=== PATIENT | female | born 1960 | race Caucasian/White ===

== ENCOUNTER 2018-12-31 06:10 | Day surgery (SDC) | payer OTHER, MEDICARE, MEDICAID ==
[~2018-12-31] VITALS: Ht 144.8 cm; Wt 49.5 kg
[~2018-12-31 06:10] MED LIST: ACET-2247 PO; ASCO500 PO; ASPI-1182 PO; ATOR10TA84 PO; CALC-959 PO; CARB15DR61 AU; DENO60DI SQ; DSS100 PO; ERGO400C PO; MULT1CAP32 PO; POLY238P2 PO; RINGERS SOLUTION,LACTATED 1,000 ML IV ONE
[2018-12-31] MEDS ORDERED: SUCCINYLCHOLINE CHLORIDE 20 MG/ML 10 ML VIAL IVP ONE (06:11)
[2018-12-31] MEDS ORDERED: DEXAMETHASONE SOD PHOS 4 MG/ML VIAL IVP ONE (06:11)
[2018-12-31] MEDS ORDERED: LIDOCAINE/PF 2% 5 ML VIAL IM ONE (06:11)
[2018-12-31] MEDS ORDERED: ONDANSETRON HCL 4 MG/2 ML VIAL IVP ONE (06:11)
[2018-12-31] MEDS ORDERED: FentaNYL CITRATE-PF 100 MCG/2 ML VIAL IVP ONE (06:11)
[2018-12-31] MEDS ORDERED: PROPOFOL 1% 20 ML VIAL IVP ONE (06:11)
[2018-12-31] MEDS: RINGERS SOLUTION,LACTATED 1,000 ML IV ONE (07:05)
[2018-12-31 07:15] LABS: BASOPHILS % (AUTO) 0.7 % (0.0-2.0); EOSINOPHILS % (AUTO) 10.1 % (1.0-6.0); HEMATOCRIT 42.8 % (36-46); HEMOGLOBIN 13.6 g/dL (12.0-16.0); LYMPHOCYTES % (AUTO) 30.4 % (22.0-44.0); MEAN CORPUSCULAR HEMOGLOBIN 29.3 pg (26.0-34.0); MEAN CORPUSCULAR HGB CONC 31.9 G/dL (31.0-37.0); MEAN CORPUSCULAR VOLUME 92 fL (80-100); MONOCYTES # (AUTO) 0.4 K/uL (0.1-1.0); NEUTROPHILS # (AUTO) 3.5 K/uL (1.8-7.7); NEUTROPHILS % (AUTO) 52.8 % (40.0-70.0); PLATELET COUNT (AUTO) 175 K/uL (150-450); RED BLOOD CELL COUNT(AUTO) 4.66 MIL/uL (4.00-5.20); RED CELL DISTRIBUTION WIDTH 13.9 % (11.5-14.5)
[2018-12-31] MEDS ORDERED: AMPICILLIN SODIUM 1 GM/VIAL ONE (07:23)
[2018-12-31] MEDS ORDERED: SODIUM CHLORIDE 0.9% 100 ML ONE (07:24)
[2018-12-31] MEDS ORDERED: SODIUM CHLORIDE 0.9% 50 ML ONE (07:24)
[2018-12-31 07:27] LABS: ANION GAP 7 mmol/L (8-16); CALCIUM, TOTAL 9.6 mg/dL (8.8-10.5); CARBON DIOXIDE 32 mmol/L (22-29); CHLORIDE 106 mmol/L (98-107); CREATININE 0.67 mg/dL (0.60-1.30); GLOMERULAR FILTR. RATE CALC > 60 mL/min (>60); GLUCOSE,RANDOM 86 mg/dL (70-110); POTASSIUM 3.7 mmol/L (3.5-5.1); SODIUM SERUM 145 mmol/L (136-145); UREA NITROGEN, BLOOD 18 mg/dL (7-18)
[2018-12-31 07:29] LABS: INR 0.9 (0.9-1.1); PROTHROMBIN TIME 9.7 SEC (9.4-11.6)
[2018-12-31 07:37] LABS: ALANINE AMINOTRANSFERASE 46 U/L (12-78); ALBUMIN 3.1 g/dL (3.4-5.0); ALKALINE PHOSPHATASE 122 U/L (46-116); ASPARTATE AMINOTRANSFERASE 28 U/L (15-37); BILIRUBIN,TOTAL 0.3 mg/dL (0.1-1.0); TOTAL PROTEIN, SERUM 6.7 g/dL (6.4-8.2)
== END 2018-12-31 13:30 | disposition home or self-care (01) ==
LOC: SURGERY 06:10
PROVIDERS: ATTEND Dentist General Practice
DX: K05.30 Chronic periodontitis, unspecified (principal); K03.6 Deposits [accretions] on teeth; E78.5 Hyperlipidemia, unspecified; M81.0 Age-related osteoporosis without current pathological fracture; K21.9 Gastro-esophageal reflux disease without esophagitis; Z91.030 Bee allergy status; Z90.710 Acquired absence of both cervix and uterus; Z98.890 Other specified postprocedural states; Z79.899 Other long term (current) drug therapy
CPT/HCPCS: 36415; 41899; 71045; 80053; 85025; 85610; 85730; 93005; J0290; J0330; J1100; J2405; J2704; J3010; J3490; J7050 ×2; J7120

== ENCOUNTER 2021-04-26 06:58 | Day surgery (SDC) | payer OTHER, MEDICARE, MEDICAID ==
[~2021-04-26] VITALS: Ht 144.8 cm; Wt 53.2 kg
[~2021-04-26 06:58] MED LIST changes: -ASPI-1182 PO; +ASPI-1444 PO; +POLY238P PO; -POLY238P2 PO
[2021-04-26 07:32] LABS: COVID AG,FIA SOURCE NASOPHARYNGEAL
[2021-04-26] MEDS ORDERED: AMPICILLIN SODIUM 2 GM/NS 100 ML IV ONE (08:00)
[2021-04-26 08:02] LABS: BASOPHILS % (AUTO) 0.4 % (0.0-2.0); EOSINOPHILS % (AUTO) 5.2 % (1.0-6.0); HEMOGLOBIN 14.3 g/dL (12.0-16.0); LYMPHOCYTES # (AUTO) 1.8 K/uL (1.0-4.8); LYMPHOCYTES % (AUTO) 17.8 % (22.0-44.0); MEAN CORPUSCULAR HEMOGLOBIN 29.8 pg (26.0-34.0); MEAN CORPUSCULAR HGB CONC 33.2 G/dL (31.0-37.0); MEAN CORPUSCULAR VOLUME 90 fL (80-100); MONOCYTES # (AUTO) 0.7 K/uL (0.1-1.0); NEUTROPHILS % (AUTO) 69.6 % (40.0-70.0); PLATELET COUNT (AUTO) 176 K/uL (150-450); RED BLOOD CELL COUNT(AUTO) 4.78 MIL/uL (4.00-5.20); RED CELL DISTRIBUTION WIDTH 13.6 % (11.5-14.5)
[2021-04-26 08:10] LABS: ANION GAP 6 mmol/L (8-16); CALCIUM, TOTAL 9.5 mg/dL (8.8-10.5); CARBON DIOXIDE 30 mmol/L (22-29); CHLORIDE 109 mmol/L (98-107); GLOMERULAR FILTR. RATE CALC > 60 mL/min (>60); GLUCOSE,RANDOM 94 mg/dL (70-110); POTASSIUM 3.9 mmol/L (3.5-5.1); SODIUM SERUM 145 mmol/L (136-145); UREA NITROGEN, BLOOD 18 mg/dL (7-18)
[2021-04-26 08:13] LABS: ALANINE AMINOTRANSFERASE 43 U/L (12-78); ALKALINE PHOSPHATASE 114 U/L (46-116); ASPARTATE AMINOTRANSFERASE 26 U/L (15-37); BILIRUBIN,TOTAL 0.3 mg/dL (0.1-1.0); PROTHROMBIN TIME 10.3 SEC (9.4-11.6)
[2021-04-26] MEDS ORDERED: FentaNYL CITRATE PF 100 MCG/2 ML VIAL IVP ONE (12:00)
[2021-04-26] MEDS ORDERED: PROPOFOL 1% 20 ML VIAL IVP ONE (12:00)
[2021-04-26] MEDS ORDERED: MIDAZOLAM HCL 2 MG/2 ML VIAL IVP ONE (12:00)
[2021-04-26] MEDS ORDERED: ONDANSETRON HCL 4 MG/2 ML VIAL IVP ONE (12:00)
[2021-04-26] MEDS ORDERED: LIDOCAINE/PF 2% 5 ML VIAL IM ONE (12:00)
== END 2021-04-26 12:35 | disposition home or self-care (01) ==
LOC: SURGERY 06:58
PROVIDERS: ATTEND Dentist General Practice
DX: K02.9 Dental caries, unspecified (principal); K03.6 Deposits [accretions] on teeth; K05.30 Chronic periodontitis, unspecified; E78.5 Hyperlipidemia, unspecified; M81.0 Age-related osteoporosis without current pathological fracture; K21.9 Gastro-esophageal reflux disease without esophagitis; K59.00 Constipation, unspecified; Z79.899 Other long term (current) drug therapy; Z98.890 Other specified postprocedural states; Z79.01 Long term (current) use of anticoagulants
CPT/HCPCS: 36415; 41899; 71045; 80053; 85025; 85610; 85730; 87426; 93005; C9803; J0290; J2250; J2405; J2704; J3010; J3490

== ENCOUNTER 2022-07-18 06:42 | Day surgery (SDC) | payer OTHER, MEDICARE, MEDICAID ==
[~2022-07-18] VITALS: Ht 147.3 cm; Wt 59.0 kg
[~2022-07-18 06:42] MED LIST changes: +ATOR10TA PO; -ATOR10TA84 PO
[2022-07-18] MEDS ORDERED: RINGERS SOLUTION,LACTATED 1,000 ML IV ONE (06:45)
[2022-07-18] MEDS ORDERED: AMPICILLIN SODIUM 2 GM/NS 100 ML IV ONE (07:09)
[2022-07-18 07:13] LABS: COVID AG,FIA SOURCE NASAL SWAB
[2022-07-18 07:30] LABS: BASOPHILS % (AUTO) 0.9 % (0.0-2.0); EOSINOPHILS % (AUTO) 7.4 % (1.0-6.0); HEMATOCRIT 42.1 % (36-46); HEMOGLOBIN 14.2 g/dL (12.0-16.0); LYMPHOCYTES # (AUTO) 2.1 K/uL (1.0-4.8); MEAN CORPUSCULAR HGB CONC 33.6 G/dL (31.0-37.0); MEAN CORPUSCULAR VOLUME 89 fL (80-100); MONOCYTES # (AUTO) 0.5 K/uL (0.1-1.0); MONOCYTES % (AUTO) 6.9 % (2.0-9.0); NEUTROPHILS # (AUTO) 4.7 K/uL (1.8-7.7); NEUTROPHILS % (AUTO) 58.8 % (40.0-70.0); PLATELET COUNT (AUTO) 196 K/uL (150-450); RED BLOOD CELL COUNT(AUTO) 4.71 MIL/uL (4.00-5.20); RED CELL DISTRIBUTION WIDTH 13.5 % (11.5-14.5)
[2022-07-18 07:42] LABS: PROTHROMBIN TIME 10.3 SEC (9.4-11.6)
[2022-07-18 07:58] LABS: ANION GAP 9 mmol/L (8-16); CALCIUM, TOTAL 9.4 mg/dL (8.8-10.5); CARBON DIOXIDE 30 mmol/L (22-29); CHLORIDE 108 mmol/L (98-107); CREATININE 0.85 mg/dL (0.60-1.30); GLOMERULAR FILTR. RATE CALC > 60 mL/min (>60); GLUCOSE,RANDOM 89 mg/dL (70-110); POTASSIUM 3.9 mmol/L (3.5-5.1); SODIUM SERUM 147 mmol/L (136-145); UREA NITROGEN, BLOOD 17 mg/dL (7-18)
[2022-07-18 08:08] LABS: ALANINE AMINOTRANSFERASE 49 U/L (12-78); ALBUMIN 3.1 g/dL (3.4-5.0); ALKALINE PHOSPHATASE 139 U/L (46-116); ASPARTATE AMINOTRANSFERASE 36 U/L (15-37); BILIRUBIN,TOTAL 0.3 mg/dL (0.1-1.0); TOTAL PROTEIN, SERUM 7.2 g/dL (6.4-8.2)
[2022-07-18] MEDS ORDERED: CETI-450 PO (08:36)
[2022-07-18] MEDS ORDERED: CARB-223 AS (08:36)
[2022-07-18] MEDS ORDERED: MEPERIDINE-PF 25 MG/ML VIAL IVP PRN (09:15)
[2022-07-18] MEDS ORDERED: FentaNYL CITRATE PF 100 MCG/2 ML VIAL IVP PRN (09:15)
[2022-07-18] MEDS ORDERED: HYDROmorphone HCL 2 MG/ML SYRINGE IVP PRN (09:15)
[2022-07-18] MEDS ORDERED: ONDANSETRON HCL 4 MG/2 ML VIAL IVP ONE (12:00)
[2022-07-18] MEDS ORDERED: LIDOCAINE/PF 2% 5 ML VIAL IM ONE (12:00)
[2022-07-18] MEDS ORDERED: DEXAMETHASONE SOD PHOS 4 MG/ML VIAL IVP ONE (12:00)
[2022-07-18] MEDS ORDERED: ROCURONIUM BROMIDE 10 MG/ML 5 ML VIAL IVP ONE (12:00)
[2022-07-18] MEDS ORDERED: OXYGEN THERAPY IH SCH (20:00)
== END 2022-07-18 11:35 | disposition home or self-care (01) ==
LOC: SURGERY 06:42
PROVIDERS: ATTEND Dentist General Practice
DX: K05.30 Chronic periodontitis, unspecified (principal); K02.9 Dental caries, unspecified; E78.5 Hyperlipidemia, unspecified; M81.0 Age-related osteoporosis without current pathological fracture; K21.9 Gastro-esophageal reflux disease without esophagitis; Z79.01 Long term (current) use of anticoagulants; Z79.899 Other long term (current) drug therapy; Z20.822 Contact with and (suspected) exposure to COVID-19; Z98.890 Other specified postprocedural states
CPT/HCPCS: 41899; 71045; 87426; 80053; 85025; 85610; 85730; 36415; 93005; J0290; J7120; C9803; J1100; J2405; J3490

== ENCOUNTER 2023-11-13 06:30 | Day surgery (SDC) | payer OTHER, MEDICARE, MEDICAID ==
[~2023-11-13] VITALS: Ht 139.7 cm; Wt 51.3 kg
[~2023-11-13 06:30] MED LIST changes: +CARB-223 AS; -CARB15DR61 AU; +CETI-450 PO
[2023-11-13] MEDS ORDERED: ROCURONIUM BROMIDE 10 MG/ML 5 ML VIAL ONE (07:23)
[2023-11-13] MEDS ORDERED: ONDANSETRON HCL 4 MG/2 ML VIAL ONE (07:23)
[2023-11-13] MEDS ORDERED: LIDOCAINE/PF 2% 5 ML VIAL ONE (07:23)
[2023-11-13] MEDS ORDERED: DEXAMETHASONE SOD PHOS 4 MG/ML VIAL ONE (07:23)
[2023-11-13] MEDS ORDERED: PROPOFOL 1% 20 ML VIAL IVP ONE (07:23)
[2023-11-13] MEDS ORDERED: SUGAMMADEX SODIUM 200 MG/2 ML VIAL IVP ONE (07:23)
[2023-11-13 07:29] LABS: BASOPHILS % (AUTO) 0.5 % (0.0-2.0); EOSINOPHILS % (AUTO) 7.1 % (1.0-6.0); HEMATOCRIT 43.1 % (36-46); HEMOGLOBIN 14.1 g/dL (12.0-16.0); LYMPHOCYTES # (AUTO) 2.3 K/uL (1.0-4.8); LYMPHOCYTES % (AUTO) 29.4 % (22.0-44.0); MEAN CORPUSCULAR HEMOGLOBIN 29.6 pg (26.0-34.0); MEAN CORPUSCULAR HGB CONC 32.8 G/dL (31.0-37.0); MEAN CORPUSCULAR VOLUME 90 fL (80-100); MONOCYTES # (AUTO) 0.6 K/uL (0.1-1.0); MONOCYTES % (AUTO) 7.8 % (2.0-9.0); NEUTROPHILS # (AUTO) 4.3 K/uL (1.8-7.7); NEUTROPHILS % (AUTO) 55.2 % (40.0-70.0); PLATELET COUNT (AUTO) 169 K/uL (150-450); RED BLOOD CELL COUNT(AUTO) 4.77 MIL/uL (4.00-5.20); RED CELL DISTRIBUTION WIDTH 13.7 % (11.5-14.5); WHITE BLOOD COUNT (AUTO) 7.8 K/uL (4.5-11.0)
[2023-11-13 07:46] LABS: ANION GAP 6 mmol/L (8-16); CALCIUM, TOTAL 9.7 mg/dL (8.8-10.5); CARBON DIOXIDE 28 mmol/L (22-29); CHLORIDE 109 mmol/L (98-107); CREATININE 0.67 mg/dL (0.60-1.30); GLOMERULAR FILTR. RATE CALC > 60 mL/min (>60); GLUCOSE,RANDOM 84 mg/dL (70-110); POTASSIUM 3.9 mmol/L (3.5-5.1); SODIUM SERUM 143 mmol/L (136-145); UREA NITROGEN, BLOOD 17 mg/dL (7-18)
[2023-11-13 07:49] LABS: ALANINE AMINOTRANSFERASE 43 U/L (12-78); ALBUMIN 2.8 g/dL (3.4-5.0); ALKALINE PHOSPHATASE 128 U/L (46-116); ASPARTATE AMINOTRANSFERASE 28 U/L (15-37); BILIRUBIN,TOTAL 0.3 mg/dL (0.1-1.0); TOTAL PROTEIN, SERUM 6.9 g/dL (6.4-8.2)
[2023-11-13 07:51] LABS: PROTHROMBIN TIME 10.1 SEC (9.4-11.6)
[2023-11-13] MEDS ORDERED: AMPICILLIN SODIUM 2 GM/NS 100 ML IV ONE (08:02)
[2023-11-13] MEDS: RINGERS SOLUTION,LACTATED 1,000 ML IV ONE (09:57)
== END 2023-11-13 14:00 | disposition home or self-care (01) ==
LOC: SURGERY 06:30
PROVIDERS: ATTEND Dentist General Practice
DX: K05.30 Chronic periodontitis, unspecified (principal); K02.9 Dental caries, unspecified; M41.9 Scoliosis, unspecified; F72 Severe intellectual disabilities; G31.9 Degenerative disease of nervous system, unspecified; L25.9 Unspecified contact dermatitis, unspecified cause; M81.0 Age-related osteoporosis without current pathological fracture; R05.3 Chronic cough; J98.11 Atelectasis; Z90.49 Acquired absence of other specified parts of digestive tract; Z79.899 Other long term (current) drug therapy; Z98.890 Other specified postprocedural states
CPT/HCPCS: 71045; 80053; 85025; 85610; 85730; 93005; J0290; J1100; J2405; J2704; J3490; J7120; Q9967; 36415-L1; 36415-TC

== ENCOUNTER 2025-03-24 06:12 | Day surgery (SDC) | payer OTHER, MEDICARE, MEDICAID ==
[~2025-03-24] VITALS: Ht 144.8 cm; Wt 56.4 kg
[~2025-03-24 06:12] MED LIST changes: -CARB-223 AS; -CETI-450 PO; +CETI10TA77 PO; +[UNRECOGNIZED DRUG - CODE] AS
[2025-03-24] MEDS ORDERED: ROCURONIUM BROMIDE 10 MG/ML 5 ML VIAL IV ONE (06:13)
[2025-03-24] MEDS ORDERED: LIDOCAINE/PF 2% 5 ML VIAL IM ONE (06:13)
[2025-03-24] MEDS ORDERED: PROPOFOL 1% 20 ML VIAL IVP ONE (06:13)
[2025-03-24] MEDS ORDERED: ONDANSETRON HCL 4 MG/2 ML VIAL IVP ONE (06:13)
[2025-03-24] MEDS ORDERED: SUGAMMADEX SODIUM 200 MG/2 ML VIAL IVP ONE (06:13)
[2025-03-24] MEDS ORDERED: DEXAMETHASONE SOD PHOS 4 MG/ML VIAL IVP ONE (06:13)
[2025-03-24 07:30] LABS: PLATELET COUNT (AUTO) 229 K/uL (150-450); RED BLOOD CELL COUNT(AUTO) 4.04 MIL/uL (4.00-5.20); RED CELL DISTRIBUTION WIDTH 13.2 % (11.5-14.5); WHITE BLOOD COUNT (AUTO) 9.3 K/uL (4.5-11.0)
[2025-03-24 07:41] LABS: CALCIUM, TOTAL 11.0 mg/dL (8.8-10.5); CREATININE 0.98 mg/dL (0.60-1.30); GLOMERULAR FILTR. RATE CALC 57.0 mL/min (>60); GLUCOSE,RANDOM 86.0 mg/dL (70-110); SODIUM SERUM 146.0 mmol/L (136-145); UREA NITROGEN, BLOOD 20.0 mg/dL (7-18)
[2025-03-24 07:46] LABS: ASPARTATE AMINOTRANSFERASE 24.0 U/L (15-37); TOTAL PROTEIN, SERUM 6.8 g/dL (6.4-8.2)
[2025-03-24] MEDS ORDERED: AMPICILLIN SODIUM 2 GM/NS 100 ML IV ONE (08:11)
[2025-03-24] MEDS ORDERED: PSYL575P22 PO (08:12)
[2025-03-24] MEDS ORDERED: PROT1PAC2 PO (08:12)
[2025-03-24] MEDS ORDERED: CHOL400T56 PO (08:12)
[2025-03-24] MEDS ORDERED: CALC-959 PO (08:12)
[2025-03-24] MEDS ORDERED: SENN-395 PO (08:12)
[2025-03-24] MEDS: RINGERS SOLUTION,LACTATED 1,000 ML IV ONE (10:10)
== END 2025-03-24 13:40 | disposition home or self-care (01) ==
LOC: SDS 06:12
PROVIDERS: ATTEND Dentist General Practice
DX: K05.20 Aggressive periodontitis, unspecified (principal); K02.9 Dental caries, unspecified; K03.6 Deposits [accretions] on teeth; E78.00 Pure hypercholesterolemia, unspecified; M81.0 Age-related osteoporosis without current pathological fracture; Z90.710 Acquired absence of both cervix and uterus; Z91.030 Bee allergy status
CPT/HCPCS: 71045; 80053; 85025; 85610; 85730; 93005; J0290; J1100; J2405; J2704; J3490; J7120; 36415-L1; 36415-TC